=== PATIENT | female | born 1950 | race Caucasian/White ===

== ENCOUNTER → 2017-03-06 | Outpatient (CLI) | payer MEDICARE, OTHER ==
--- NOTE | 2017-03-06 14:53 | REPMRS ---
Patient History The patient states she had a clinical breast exam in 09/17 Patient is postmenopausal. Family history of breast cancer in maternal grandmother at age 80. Taking estrogen for 6 months. Took unspecified hormones for 6 months. Digital Woman Screen Mammo: March 06, 2017 - Exam #: [id number] Bilateral CC and MLO view(s) were taken. Technologist: Maricel Segovia, Technologist Prior study comparison: November 30, 2014, digital woman screen mammo performed at [facility]. January 14, 2013, bilateral bilat screen digital mammo, performed at [facility] ([facility]). June 27, 2010, bilateral screening mammogram, performed at [facility] ([facility]). FINDINGS: The breast tissue is heterogeneously dense. This may lower the sensitivity of mammography. There is a moderate amount of heterogeneously dense fibroglandular tissue which is fairly symmetric. There is no interval development of dominant mass, architectural distortion, or clustered microcalcification typical of malignancy. There has been no change in the appearance of the mammogram from the prior studies. ASSESSMENT: BI-RADS/ACR category 1 mammogram. Negative. Recommendation Routine screening mammogram of both breasts in 1 year (for women over age 40). This mammogram was interpreted with the aid of an FDA-approved computer-aided dectection system. Electronically Signed By: Jared Martin MD 03/06/17 0102
== END ==
LOC: M WHC 11:02
PROVIDERS: ATTEND Obstetrics & Gynecology
DX: Z12.31 Encounter for screening mammogram for malignant neoplasm of breast (principal); R92.8 Other abnormal and inconclusive findings on diagnostic imaging of breast; Z78.0 Asymptomatic menopausal state; Z79.890 Hormone replacement therapy

== ENCOUNTER → 2019-04-19 | Outpatient (REF) | payer MEDICARE, OTHER ==
[2019-04-19 18:41] LABS: APPEARANCE, URINE CLEAR (CLEAR); BACTERIA, URINE AUTO NEGATIVE (NEGATIVE); BILIRUBIN, URINE AUTO NEGATIVE (NEGATIVE); BLOOD, URINE BLOOD 2+ (NEGATIVE); COLOR, URINE STRAW (YELLOW); GLUCOSE, URINE (UA) AUTO NEGATIVE (NEGATIVE); KETONE, URINE AUTO NEGATIVE (NEGATIVE); LEUKOCYTE ESTERASE, URINE AUTO 3+ (NEGATIVE); NITRITE, URINE AUTO NEGATIVE (NEGATIVE); PROTEIN, URINE AUTO NEGATIVE (NEGATIVE); RBC, URINE AUTO 2 /HPF (0-3); SPECIFIC GRAVITY URINE AUTO 1.003 (1.002-1.035); SQUAMOUS EPITHELIAL CELL UR AU 0 /HPF (0-6); UROBILINOGEN, URINE AUTO 0.2 mg/dL (0.0-2.0); WBC, URINE AUTO 11 /HPF (0-3)
== END ==
LOC: M LAB REF 17:46
PROVIDERS: ATTEND Obstetrics & Gynecology
DX: R39.89 Other symptoms and signs involving the genitourinary system (principal)

== ENCOUNTER → 2019-06-22 | Outpatient (CLI) | payer MEDICARE, OTHER ==
--- NOTE | 2019-06-22 08:57 | REPMRS ---
Patient History The patient states she has not had a clinical breast exam in over a year. Patient is postmenopausal. Family history of breast cancer at age 80 in maternal grandmother. Took estrogen for 6 months. Took unspecified hormones for 6 months. 3D TOMOSYNTHESIS WAS PERFORMED. [facility] lifetime risk for breast cancer is 6.8%. Digital Woman Screen Mammo: June 22, 2019 - Exam #: [id number] Bilateral CC and MLO view(s) were taken. Technologist: Dana Waldron, Technologist Prior study comparison: March 06, 2017, digital woman screen mammo performed at [facility]. November 30, 2014, digital woman screen mammo performed at [facility]. FINDINGS: The breast tissue is heterogeneously dense. This may lower the sensitivity of mammography. There has been no change in the appearance of the mammogram from the prior studies. There is a moderate amount of residual fibroglandular tissue which is fairly symmetric. There is no interval development of dominant mass, areas of architectural distortion, or clustered microcalcification typical of malignancy. Assessment: BI-RADS/ACR category 1 mammogram. Negative Mammogram. Recommendation Routine screening mammogram in 1 year (for women over age 40). This mammogram was interpreted with the aid of an FDA-approved computer-aided dectection system. Electronically Signed By: Best Andrews MD 06/22/19 0857
== END ==
LOC: M WHC 07:05
PROVIDERS: ATTEND Family Medicine
DX: Z12.31 Encounter for screening mammogram for malignant neoplasm of breast (principal); Z78.0 Asymptomatic menopausal state; Z80.3 Family history of malignant neoplasm of breast

== ENCOUNTER → 2019-10-11 | Outpatient (CLI) | payer MEDICARE, OTHER ==
[2019-10-11 14:24] LABS: BASO # 0.1 10^3/uL (0.0-0.2); EOS # 0.2 10^3/uL (0.0-0.5); EOS % 3.5 % (0.0-3.0); HEMATOCRIT 43.1 % (36.0-47.0); HEMOGLOBIN 13.9 g/dl (12.0-15.5); LYMPH # 1.5 10^3/uL (1.5-5.0); LYMPH % 29.7 % (24.0-44.0); MEAN CORPUSCULAR HEMOGLOBIN 31.7 pg (27.0-33.0); MEAN CORPUSCULAR HGB CONC 32.3 g/dl (32.0-36.5); MEAN CORPUSCULAR VOLUME 98.4 fl (80.0-96.0); MONO # 0.3 10^3/uL (0.0-0.8); MONO % 5.7 % (0.0-5.0); NEUTROPHILS # 3.1 10^3/uL (1.5-8.5); NEUTROPHILS % 59.9 % (36.0-66.0); PLATELET COUNT, AUTOMATED 254 10^3/uL (150-450); RED BLOOD COUNT 4.38 10^6/uL (4.00-5.40); WHITE BLOOD COUNT 5.1 10^3/uL (4.0-10.0)
[2019-10-11 15:01] LABS: ALT/SGPT 27 U/L (12-78); BILIRUBIN,TOTAL 1.1 MG/DL (0.2-1.0); BLOOD UREA NITROGEN 19 MG/DL (7-18); CALCIUM LEVEL 9.7 MG/DL (8.8-10.2); CARBON DIOXIDE LEVEL 30 MEQ/L (21-32); CHLORIDE LEVEL 105 MEQ/L (98-107); CREATININE FOR GFR 0.82 MG/DL (0.55-1.30); GLOMERULAR FILTRATION RATE > 60.0 (>45); GLUCOSE, FASTING 88 MG/DL (70-100); POTASSIUM SERUM 3.9 MEQ/L (3.5-5.1); SODIUM LEVEL 140 MEQ/L (136-145); THYROGLOBULIN ANTIBODY 15.7 U/ML (<60.0); THYROID PEROXIDASE ANTIBODY < 28.0 U/ML (<60.0); THYROXINE (T4) 6.2 UG/DL (4.5-12.0); TOTAL PROTEIN 6.6 GM/DL (6.4-8.2); TOTAL T3 75.4 NG/DL (60.0-181.0)
[2019-10-11 15:23] LABS: ERYTHROCYTE SEDIMENTATION RATE 5 mm/hr (0-30)
== END ==
LOC: M LAB 13:44
PROVIDERS: ATTEND Allergy & Immunology Allergy
DX: L50.1 Idiopathic urticaria (principal)

== ENCOUNTER → 2020-02-21 | Outpatient (CLI) | payer MEDICARE, OTHER ==
[~2020-02-21] MED LIST: ALLE180T33 PO; FAMO40TA3 PO; HYDR-3363 PO; LEVOTAB10 PO
== END ==
LOC: M LABSMTC 10:57
PROVIDERS: ATTEND Anesthesiology
DX: Z03.818 Encounter for observation for suspected exposure to other biological agents ruled out (principal); Z11.59 Encounter for screening for other viral diseases
CPT/HCPCS: C9803; U0003

== ENCOUNTER 2020-02-24 12:47 | Day surgery (SDC) | payer MEDICARE, OTHER ==
[~2020-02-24] VITALS: Ht 154.9 cm; Wt 57.6 kg
[~2020-02-24 12:47] MED LIST changes: +NS 1,000 ML IV ONE
[2020-02-24] MEDS ORDERED: LIDOCAINE 2% 100MG/5ML SDV (FOR ANES.) As Ordered ONE (12:49)
[2020-02-24] MEDS ORDERED: propofoL 200 MG/20 ML VIAL As Ordered ONE (14:25)
--- NOTE | 2020-02-24 14:31 | ROOR ---
Patient Name: Laila Hines Procedure Date: 02/24/2020 1:58 PM Date of : 1950 Age: 69 Room: [facility] Gender: Female Note Status: Finalized Procedure: Colonoscopy Indications: Screening for colorectal malignant neoplasm Providers: Real Marcelo Jr, MD Referring MD: Pritesh Chaidez MD Requesting Provider: Medicines: Propofol per Anesthesia Complications: No immediate complications. Procedure: Pre-Anesthesia Assessment: - Prior to the procedure, a History and Physical was performed, and patient medications and allergies were reviewed. The patient is competent. The risks and benefits of the procedure and the sedation options and risks were discussed with the patient. All questions were answered and informed consent was obtained. Patient identification and proposed procedure were verified by the physician and the nurse in the pre-procedure area and in the procedure room. Mental Status Examination: alert and oriented. Airway Examination: normal oropharyngeal airway and neck mobility. Respiratory Examination: clear to auscultation. CV Examination: normal. ASA Grade Assessment: II - A patient with mild systemic disease. After reviewing the risks and benefits, the patient was deemed in satisfactory condition to undergo the procedure. The anesthesia plan was to use moderate sedation / analgesia (conscious sedation). Immediately prior to administration of medications, the patient was re-assessed for adequacy to receive sedatives. The heart rate, respiratory rate, oxygen saturations, blood pressure, adequacy of pulmonary ventilation, and response to care were monitored throughout the procedure. The physical status of the patient was re-assessed after the procedure. The Colonoscope was introduced through the anus and advanced to the cecum, identified by appendiceal orifice and ileocecal valve. The quality of the bowel preparation was adequate. The colonoscopy was performed without difficulty. Findings: The recto-sigmoid colon, sigmoid colon, descending colon, transverse colon, ascending colon, cecum, appendiceal orifice and ileocecal valve appeared normal. A small polyp was found in the rectum. The polyp was removed with a cold snare. Resection and retrieval were complete. Impression: - The recto-sigmoid colon, sigmoid colon, descending colon, transverse colon, ascending colon, cecum, appendiceal orifice and ileocecal valve are normal. - One small polyp in the rectum, removed with a cold snare. Resected and retrieved. Recommendation: - Repeat colonoscopy in 5-10 years for surveillance based on pathology results. Real Marcelo MD Real Marcelo Jr, MD 02/24/2020 2:31:04 PM Electronically signed by Real Marcelo Jr, MD Number of Addenda: 0 Note Initiated On: 02/24/2020 1:58 PM Estimated Blood Loss: Estimated blood loss: none.
[2020-02-24 14:58] VITALS: BP 129/74
== END 2020-02-24 15:00 | disposition home or self-care (01) ==
LOC: M OPP 12:47
PROVIDERS: ATTEND Surgery
DX: Z12.11 Encounter for screening for malignant neoplasm of colon (principal); K62.1 Rectal polyp; Z79.899 Other long term (current) drug therapy

== ENCOUNTER → 2020-10-10 | Outpatient (CLI) | payer SELFPAY ==
[~2020-10-10] MED LIST changes: -NS 1,000 ML IV ONE
== END ==
LOC: M LABSMTC 09:40
PROVIDERS: ATTEND Pediatrics
DX: Z20.828 Contact with and (suspected) exposure to other viral communicable diseases (principal)

== ENCOUNTER → 2021-06-27 | Outpatient (CLI) | payer MEDICARE, OTHER ==
--- NOTE | 2021-06-27 15:31 | REPMRS ---
Patient History The patient states she had a clinical breast exam in October 2020. Patient is postmenopausal. Family history of breast cancer at age 80 in maternal grandmother. Taking estrogen for 3 years 6 months. Took unspecified hormones for 6 months. Patient states no breast complaints today. Patient has signed MRS History Sheet. Digital Woman Screen Mammo: June 27, 2021 - Exam #: [id number] Bilateral CC and MLO view(s) were taken. Technologist: Maricel Segovia, Technologist Prior study comparison: June 22, 2019, bilateral digital woman screen mammo performed at [facility]. March 06, 2017, digital woman screen mammo performed at [facility]. FINDINGS: The breast tissue is heterogeneously dense. This may lower the sensitivity of mammography. Screening. Digital screening (2D) mammography was performed bilaterally in the CC and MLO projections. Additionally, breast tomosynthesis (3D mammography) was performed bilaterally in the CC and MLO projections. Todays exam was compared to the prior exam/exams. By history, the patient has no complaints of a palpable breast abnormality or other significant breast complaints. The Volpara volumetric breast density category is C, the breasts are heterogenously dense which may obscure small masses. The breasts are unchanged in size and shape. There are no calderon-soft tissue densities or spiculated masses. There is no internal architectural distortion. There are no suspicious calderon-calcific clusters. Skin thickening or nipple retraction is not present. IMPRESSION: BI-RADS Category 2- Benign Findings. There is no evidence of malignant alteration of the breasts. Followup examination recommended in one year. The lifetime Tyrer-Cuzick score is 6.0% This mammogram was read with the assistance of [facility] [employer],an FDA approved computer aided detection system for mammography. Due to the density of the breasts, MRI/whole breast screening ultrasound is warranted. Negative x-ray reports should not delay surgical consultation if a dominant or clinically suspicious mass is present. Not all breast cancers can be identified by mammography. Therefore, we recommend that you continue to perform regular breast self-examination and physical examination and then promptly contact your physician of any concerns or changes. Adenosis and dense breasts may obscure an underlying neoplasm. No significant changes when compared with prior studies. Assessment: BI-RADS/ACR category 2 mammogram. Benign Findings. Recommendation Routine screening mammogram of both breasts in 1 year. Electronically Signed By: Jayson Arguelles MD 06/27/21 2440
== END ==
LOC: M WHC 14:35
PROVIDERS: ATTEND Obstetrics & Gynecology
DX: Z12.31 Encounter for screening mammogram for malignant neoplasm of breast (principal); Z80.3 Family history of malignant neoplasm of breast

== ENCOUNTER → 2022-01-18 | Outpatient (CLI) | payer MEDICARE, OTHER | LOC: M WUC 11:31 | PROVIDERS: ATTEND Family Medicine | DX: M85.68 Other cyst of bone, other site (principal); M16.11 Unilateral primary osteoarthritis, right hip ==

== ENCOUNTER → 2022-11-18 | Outpatient (REF) | payer MEDICARE, OTHER | LOC: M SFHCWAGY 18:33 | PROVIDERS: ATTEND Nurse Practitioner Family | DX: Z12.4 Encounter for screening for malignant neoplasm of cervix (principal) ==

== ENCOUNTER → 2023-11-12 | Outpatient (CLI) | payer MEDICARE, OTHER | LOC: M PLAIMG 09:58 | PROVIDERS: ATTEND Chiropractor | DX: M47.816 Spondylosis without myelopathy or radiculopathy, lumbar region (principal); M46.96 Unspecified inflammatory spondylopathy, lumbar region; M16.12 Unilateral primary osteoarthritis, left hip ==

== ENCOUNTER → 2024-08-17 | Outpatient (CLI) | payer MEDICARE, OTHER | LOC: M WHC 11:25 | PROVIDERS: ATTEND Nurse Practitioner Family | DX: R59.0 Localized enlarged lymph nodes (principal) ==